=== PATIENT | female | born 1940 | race Caucasian/White ===

== ENCOUNTER 2018-12-19 20:15 | Emergency (ER) | payer MEDICARE, BC ==
[~2018-12-19] VITALS: Ht 167.6 cm; Wt 50.0 kg
[~2018-12-19 20:15] MED LIST: ESTRACE VAG0.1 MG/GM VA; FISH OI1 PO; FLUARIX QUADRIV1 IN1 IM; HYDROCHLOROT25 MG PO; NAPROSYN500 MG PO; NIACIN500 M2 PO; POT CHLORIDE10 ME5 PO; ZPAK PO
[2018-12-19] MEDS ORDERED: HYDROCO/APAP1 TA9 PO (22:08)
[2018-12-19 22:31] VITALS: BP 171/89
== END 2018-12-19 22:31 | disposition home or self-care (01) ==
LOC: ED 20:15
PROC: 2W3DX1Z Immobilization of Left Lower Arm using Splint (ICD-10-PCS; principal; 2018-12-19)
DX: S52.502A Unspecified fracture of the lower end of left radius, initial encounter for closed fracture (principal); S52.602A Unspecified fracture of lower end of left ulna, initial encounter for closed fracture; S00.81XA Abrasion of other part of head, initial encounter; W01.0XXA Fall on same level from slipping, tripping and stumbling without subsequent striking against object, initial encounter; Y93.K1 Activity, walking an animal; Y92.414 Local residential or business street as the place of occurrence of the external cause

== ENCOUNTER 2022-11-21 17:36 | Emergency (ER) | payer MEDICARE, BC ==
[~2022-11-21] VITALS: Ht 167.6 cm; Wt 58.0 kg
[~2022-11-21 17:36] MED LIST changes: +HYDROCO/APAP1 TA9 PO
[2022-11-21 22:31] VITALS: BP 180/90
== END 2022-11-21 22:43 | disposition home or self-care (01) ==
LOC: ED 17:36
DX: S39.012A Strain of muscle, fascia and tendon of lower back, initial encounter (principal); S30.0XXA Contusion of lower back and pelvis, initial encounter; I10 Essential (primary) hypertension; W01.0XXA Fall on same level from slipping, tripping and stumbling without subsequent striking against object, initial encounter

== ENCOUNTER 2023-11-07 17:14 | Inpatient (IN) | payer MEDICARE, BC ==
[~2023-11-07] VITALS: Ht 167.6 cm; Wt 54.2 kg
[2023-11-07] VITALS (9 sets, daily range): BP systolic 154–167; BP diastolic 69–87
[~2023-11-07 17:14] MED LIST changes: +AMLODIPINE BESYL5 MG PO; +ASPIRIN81 MG PO; +ATORVASTATIN CA40 MG PO
--- NOTE | 2023-11-07 17:15 | NUR ---
PT BROUGHT IN VIA EMS A STROKE ALERT, STROKE ALERT ETA 5 MINS CALLED PRIOR TO PT GETTING HERE, PT TRANSPORTED TO CT, NO DISTRESS NOTED
[2023-11-07 17:37] LABS: BASO% 0.4 % (0-3); EOS% 0.9 % (0-8); HEMATOCRIT 39.9 % (37.0-47.0); HEMOGLOBIN 12.9 g/dl (12.0-16.0); IMMATURE GRANULOCYTES 0.2 % (0.0-5.0); LYMPH% 23.5 % (15-41); MEAN CELL VOLUME 91.5 fL CALC (80.0-100.0); MEAN CORPUSCULAR HGB 29.6 pG CALC (26.0-32.0); MEAN CORPUSCULAR HGB CONC 32.3 g/dL CAL (32.0-36.0); MONO% 14.6 % (2-13); NEUT# 2.69 thou/uL (2.00-7.15); NEUT% 60.4 % (42-76); RED BLOOD COUNT 4.36 mill/uL (4.20-5.60); RED CELL DISTRI WIDTH 13.2 % (11.5-15.5)
[2023-11-07 17:50] LABS: ALKALINE PHOSPHATASE 58 u/l (38-126); ANION GAP 10 (6-22 (CALC)); BILIRUBIN, TOTAL 0.6 mg/dL (0.02-1.3); BUN 16 mg/dL (8-23); BUN/CREATININE RATIO 20 (12-20 (CALC)); CALCULATED LDLCHOLESTEROL 85 mg/dL (62-129 (CALC)); CARBON DIOXIDE 27 mmol/l (22-30); CHLORIDE 108 mmol/l (95-108); CHOLESTEROL HDL RATIO 3.1 (<4.4 (CALC)); CREATININE 0.8 mg/dL (0.5-1.0); ESTIMATED GFR 73 ML/MIN (>=90 (CALC)); HDL CHOLESTEROL 64 mg/dL (39.0-59.0); POTASSIUM 3.8 mmol/l (3.5-5.1); SGOT/AST 27 u/l (9-36); SODIUM 140 mmol/l (137-146); TOTAL CHOLESTEROL 195 mg/dl (0-199); TOTAL TRIGLYCERIDES 234 mg/dl (0-149); VLDL CHOLESTROL 47 mg/dl (0-48 (CALC))
[2023-11-07 17:51] LABS: INTERNATIONAL NORMALIZED RATIO 1.1 RATIO (0.7-1.3)
[2023-11-07 17:53] LABS: ALBUMIN 4.3 g/dL (3.2-5.0); PROTHROMBIN TIME 10.1 SECONDS (9.0-12.5); TOTAL PROTEIN 7.7 g/dL (6.3-8.2)
[2023-11-07] MEDS ORDERED: ASPIRIN 81 MG/TAB PO ONE (18:30)
[2023-11-07] MEDS ORDERED: CLOPIDOGREL BISULFATE 75 MG/TAB TAB PO ONE (18:30)
--- NOTE | 2023-11-07 19:00 | NUR ---
CARE ASSUMED WITH NO REPORT RECIEVED AT THIS TIME. NIHSS COMPLETE TO ESTABLISH PT DEFICITS BY SALT OPERATOR. PT NOTED WITH (L) ARM DRIFT, MINOR (L) FACIAL DROOP, (L) ARM LIMB ATAXIA, AND PT NOTED WITH (L) PARTIAL GAZE PALSY. PT A&O X3 AT THIS TIME, PT ABLE TO FOLLOW ALL COMMANDS. PT SPEECH NOTED TO BE CLEAR AT THIS TIME. FAMILY AT BEDSIDE. PT UPDATED ON POC, VSS, PT AWAITING ALL FURTHER RESULTS/ORDERS. PT UPDATE ON NEED FOR URINE SPECIMEN, PT STATES WILL ATTEMPT. BEDSIDE COMMODE PROVIDED, URINE SAMPLE COLLECTED, PT NOTED WITH UNSTEADY GAIT. MD AWARE OF PT STATUS.
[2023-11-07 19:57] LABS: URINE BILIRUBIN - DIPSTICK Negative (NEGATIVE); URINE BLOOD DIPSTICK Trace-intact (NEGATIVE); URINE GLUCOSE - DIPSTICK 100 mg/dL (NEGATIVE); URINE KETONE Negative (NEGATIVE); URINE LEUK ESTERASE Negative (NEGATIVE); URINE NITRITE - DIPSTICK Negative (Negative); URINE PROTEIN - DIPSTICK Negative (NEG-TRACE); URINE SPECIFIC GRAVITY 1.015; URINE UROBILINOGEN - DIPSTICK 0.2 E.U./dL (0.2)
[2023-11-07 19:58] LABS: URINE COLOR Yellow
[2023-11-07] MEDS ORDERED: ACETAMINOPHEN 325 MG/TAB PO PRN (20:00)
[2023-11-07] MEDS ORDERED: SODIUM CHLORIDE 0.9% 1,000 ML IV PRN (20:15)
[2023-11-07] MEDS ORDERED: MAGNESIUM HYDROXIDE 30 ML UDC PO PRN (20:15)
[2023-11-07] MEDS ORDERED: DEXTROSE 250 ML IV PRN (20:35)
[2023-11-07] MEDS ORDERED: ENOXAPARIN SODIUM 40 MG/0.4 ML SYR SC SCH (21:00)
[2023-11-07] MEDS ORDERED: ATORVASTATIN CALCIUM 40 MG/TAB PO SCH (21:00)
--- NOTE | 2023-11-07 21:13 | NUR ---
REPORT GIVEN TO JOHANNA ARELLANO.
--- NOTE | 2023-11-07 21:25 | NUR ---
PT TRANSPORTED TO [facility]IA [facility]. ASSISTED NURSE/JOB HAND WITH PT TRANSFER TO [facility] STRETCH[facility].
[2023-11-07] MEDS ORDERED: hydrALAZINE HCL 20 MG/ML VIAL(1 ML) IV PRN (22:20)
--- NOTE | 2023-11-07 22:30 | NUR ---
PATIENT ADMITTED FROM ER VIA STRETCHER WITH ER STAFF IN ATTENDANCE. PATIENT ASSISTED TO THE BED. PATIENT IS AWAKE AND ALERT AND ADMITTED FOR CVA. PATIENT ADMITTED FROM HOME AND LIVES ALONE. PATIENT WAS FOUND SITTING ON THE FLOOR BY HER SISTER AND EMS WAS CALLED. PATIENT WITH HISTORY OF DEMENTIA. PATIENT WITH LEFT FACIAL DROOP AND SLIGHLY SLURRED SPEECH. PATIIENT WITH SOME LEFT SIDED DRIFT AND LEANS TO THE LEFT WHEN SITTING UP. PATIENT WITH NO DIFFICULTY WITH SWALLOWING, EATING AND DRINKING WITHOUT ANY DIFFICULTY. IV SITE TO RAC INTACT AND HEALTHY WITH GOOD BLOOD RETURN WHEN FLUSHED. IVF NS HUNG AND INFUSING ORDERED. TELE MONITOR IN PLACE AND READING SB-50'S. LUNGS ARE CLEAR. ABD IS SOFT WITH ACTIVE BS. LAST BM WAS YESTERDAY SAT 11/06/23 PER PATIENT. NO DIFFICULTY WITH URINATION AT THIS TIME. NO PERIPHERAL EDEMA NOTED AND PULSES ARE PALPABLE. PATIENT PROVIDED WITH HEALTHY CHOICE TURKEY DINNER. SISTER AT BEDSIDE. ORIENTED TO ROOM AND SURROUNDINGS. INSTRUCTED ON USE OF NURSE CALL LIGHT SYSTEM AND TV REMOTE. SAFETY PRECAUTIONS REINFORCED. CALL LIGHT IN REACH. WILL CONT TO MONITOR.
[2023-11-08] VITALS (11 sets, daily range): BP systolic 120–187; BP diastolic 66–90
--- NOTE | 2023-11-08 | NUR ---
PATIENT ASSISTED OOB TO THE BSC TO VOID CLEAR YELLOW URINE. CONT TO HAVE LEFT SIDE WEAKNESS AND DRIFT. ASSISTED BACK TO BED, TELE MONITOR IN PLACE. IVF PATENT AND INFUSING VIA RAC SITE AT 100CC/HR. SISTER REMAINS AT BEDSIDE. BED ALARM IN PLACE FOR PATIENT SAFETY. CALL LIGHT IN REACH. WILL CONT TO MONITOR.
--- NOTE | 2023-11-08 01:20 | NUR ---
Patient standing scale weight 54.0 kg
--- NOTE | 2023-11-08 03:41 | NUR ---
PATIENT APPEARS SLEEPING WITH EYES CLOSED. RESPS ARE EVEN AND UNLABORED. SISTER AT BEDSIDE RESTING IN RECLINER. TELE MONITOR IN PLACE READING SR-HIGH 40'S. IVF NS PATENT AND INFUSING AT 100CC/HR. CALL LIGHT IN REACH. WILL CONT TO MONITOR.
[2023-11-08 05:02] LABS: BASO% 0.5 % (0-3); EOS% 1.5 % (0-8); HEMATOCRIT 38.6 % (37.0-47.0); HEMOGLOBIN 12.5 g/dl (12.0-16.0); IMMATURE GRANULOCYTES 0.3 % (0.0-5.0); LYMPH% 41.7 % (15-41); MEAN CELL VOLUME 93.5 fL CALC (80.0-100.0); MEAN CORPUSCULAR HGB 30.3 pG CALC (26.0-32.0); MEAN CORPUSCULAR HGB CONC 32.4 g/dL CAL (32.0-36.0); MONO% 16.6 % (2-13); NEUT# 1.57 thou/uL (2.00-7.15); NEUT% 39.4 % (42-76); RED BLOOD COUNT 4.13 mill/uL (4.20-5.60); RED CELL DISTRI WIDTH 13.4 % (11.5-15.5)
[2023-11-08 05:13] LABS: ALBUMIN 3.5 g/dL (3.2-5.0); BILIRUBIN, TOTAL 0.6 mg/dL (0.02-1.3); CREATININE 0.7 mg/dL (0.5-1.0); MAGNESIUM 2.3 mg/dL (1.6-2.3); POTASSIUM 3.9 mmol/l (3.5-5.1); TOTAL PROTEIN 6.3 g/dL (6.3-8.2)
--- NOTE | 2023-11-08 06:21 | NUR ---
PATIENT AWAKE ALERT AND ORIENTEDX3. SISTER REMAINS AT BEDSIDE. PATIENT NIH AT THIS TIME O. SPEECH IS CLEAR THIS MORNING. NO FACIAL DROOP NOTED. LEFT SIDE WEAKNESS IS IMPROVED. TELE MONITOR IN PLACE. IVF PATENT ANDINFUSING VIA RAC SITE AT 100CC/HR. PATIENT ASSISTED OOB TO THE BSC TO VOID-MOVING MUCH BETTER THIS MORNING. BED ALARM IN PLACE FOR PATIENT SAFETY6. CALL LIGHT IN REACH. WILL CONT TO MONITOR.
--- NOTE | 2023-11-08 07:13 | NUR ---
PT IS AOX3, NIH=0, LUNGS ARE CLEAR, BOWEL SOUNDS ARE ACTIVE, PEDAL PULSES ARE PALPABLE TO TOUCH, PT DENIES PAIN AT THIS TIME.
[2023-11-08] MEDS ORDERED: CLOPIDOGREL BISULFATE 75 MG/TAB TAB PO SCH (09:00)
--- NOTE | 2023-11-08 10:32 | NUR ---
NEURO AT BEDSIDE VIA [facility] DISCUSSING PLAN OF CARE WITH PT AT THIS TIME.
--- NOTE | 2023-11-08 10:40 | NUR ---
WHILE ANSWERING QUESTIONS FOR NEUROLOGIST PT ANSWERED CURRENT MONTH MAY, UNABLE TO ANSWER WHO THE PRESIDENT IS.
--- NOTE | 2023-11-08 12:00 | NUR ---
PT OFF THE FLOOR FOR MRI.
--- NOTE | 2023-11-08 12:34 | NUR ---
PT RETURNED FROM MRI, IS NOW SITTING UP IN BED EATING LUNCH.
--- NOTE | 2023-11-08 15:52 | NUR ---
pt is off the floor for echo testing.
--- NOTE | 2023-11-08 16:56 | NUR ---
PT RETURNED TO UNIT FROM ECHO.
--- NOTE | 2023-11-08 17:13 | NUR ---
PATIENT WEIGHT, AND VITAL SIGNS; WT-54.4KG T-97.9 P-93 RESP-20 B/P-114/79 O2-94 ROOM AIR
--- NOTE | 2023-11-08 17:50 | NUR ---
RECIEVED CALL FROM ER TELE MONITOR THAT PT IS SHOWING SOME IRREGULAR RHYTHMS. CALL FOR AN EKG PLACES TO RT, CHECKED PT WHO IS STIITING UP IN BED EATING DINNER, DENIES PAIN OR DISCOMFORT AT THIS TIME. PT'S BP AT 181/85, HR 62, O2 AT 97%.
--- NOTE | 2023-11-08 18:11 | NUR ---
CALL PLACED TO DR VILLEGAS TO NOTIFY PATIENTS BLOOD PRESSURE OF 187/90, HR 62, O2 OF 97%, AND ABOUT CALL FROM TELE MONITOR ABOUT PATIENTS HEART RHYTHUM.
[2023-11-08] MEDS ORDERED: amLODIPine BESYLATE 2.5 MG/TAB PO SCH (18:21)
[2023-11-08] MEDS ORDERED: ENALAPRILAT 1.25 MG/ML 1ML IV PRN (18:40)
--- NOTE | 2023-11-08 19:30 | NUR ---
PATIENT SITTING UP ION BED-AWAKE ALERT AND ORIENTEDX3 VISITING WITH FAMILY AT BEDSIDE. PATIENT WITH NO COMPLAINTS AT THIS TIME. NIH AT THIS TIME IS 0. MUCH IMPROVED FROM LAST NIGHT. SPEECH IS CLEAR, NO FACIAL DROOP, HAND GRASPS EQUAL AND STRONG. SHANA IS WNL. IVF PATENT AND INFUSING VIA RAC SITE AT 100CC/HR. LUNGS ARE CLEWAR. ABD IS SOFT WITH ACTIVE BS. LAST BM WAS TODAY. TELE MONITOR IS SR-62. BP IS ELEVATED AND NEW ORDER FOR [facility]VASC GIVEN ORDERED. BED ALARM IN PLACE FOR PATIENT SAFETY. SAFETY PRECAUTIONS REINFORCED. CALL LIGHT IN REACH. WILL CONT TO MONITOR,
[2023-11-08] MEDS ORDERED: MEMANTINE Hydrochloride 10 MG/TAB PO SCH (21:00)
--- NOTE | 2023-11-08 23:56 | NUR ---
PATIENT RESTING IN BED WITH EYES CLOSED. RESPS ARE EVEN AND UNLABORED. TELE MONITOR IN PLACE. IVF PATENT ANDINFUSING VIA [facility] SITE AT 100CC/HR. CALL LIGHT IN REACH. WILL CONT TO MONITOR.
[2023-11-09] VITALS (10 sets, daily range): BP systolic 147–168; BP diastolic 67–83
--- NOTE | 2023-11-09 00:20 | NUR ---
RESTING IN BED AT THIS TIME WITH HOB ELEVATED. EYES ARE CLOSED AND RESPS ARE EVEN AND UNLABORED. TELE MONITOR IN PLACEWITH LAST READING SR-60'S. IVF NS PATENT AND INFUSING AT 100CC/HR VIA RAC SITE. BED ALARM IN PLACE FOR PATIENT SAFETY. CALL LIGHT IN REACH. WILL CONT TO MONITOR.
--- NOTE | 2023-11-09 04:18 | NUR ---
PATIENT RESTING IN BED AT THIS TIME-APPEARS SLEEPING WITH EYES CLOSED. RESPS ARE EVEN AND UNLABORED. TELE MONITOR IN PLACE AND READING SR-62. IVF NS PATENT AND INFUSING AT 100CC/HR. BED ALARM IN PLACE FOR PATIENT SAFETY. CALL LIGHT IN REACH. WILL CONT TO MONITOR.
[2023-11-09 05:48] LABS: BASO% 0.5 % (0-3); EOS% 2.4 % (0-8); HEMATOCRIT 38.1 % (37.0-47.0); HEMOGLOBIN 12.5 g/dl (12.0-16.0); IMMATURE GRANULOCYTES 0.7 % (0.0-5.0); LYMPH% 36.8 % (15-41); MEAN CELL VOLUME 91.8 fL CALC (80.0-100.0); MEAN CORPUSCULAR HGB 30.1 pG CALC (26.0-32.0); MEAN CORPUSCULAR HGB CONC 32.8 g/dL CAL (32.0-36.0); MONO% 14.7 % (2-13); NEUT# 1.89 thou/uL (2.00-7.15); NEUT% 44.9 % (42-76); RED BLOOD COUNT 4.15 mill/uL (4.20-5.60); RED CELL DISTRI WIDTH 13.6 % (11.5-15.5)
[2023-11-09 06:28] LABS: ALBUMIN 3.2 g/dL (3.2-5.0); BILIRUBIN, TOTAL 0.4 mg/dL (0.02-1.3); CREATININE 1.1 mg/dL (0.5-1.0); MAGNESIUM 2.2 mg/dL (1.6-2.3); POTASSIUM 4.5 mmol/l (3.5-5.1)
--- NOTE | 2023-11-09 07:40 | NUR ---
SHIFT CHANGE REPORT, PT AWAKE AND ALERT RESTING IN BED, NO C/O DISCOMFORT AT THIS TIME, IVF INFUSING, TELE MONITOR IN PLACE, CALL SCHROEDER IN REACH AND BED LOCKED IN LOWEST POSITION WITH ALARM ACTIVATED. NURSE ASSISTED PT TO BSC SHE REQUESTED, TAX RECORD CLERK ASSISTED WITH TRANSFER TO RECLINER, CALL SCHROEDER PLACED IN REACH.
[2023-11-09] MEDS ORDERED: amLODIPine BESYLATE 5 MG/TAB PO SCH (09:00)
[2023-11-09] MEDS ORDERED: MEMANTINE HYDRO10 MG PO (09:23)
[2023-11-09] MEDS ORDERED: hydroCHLOROthiazide 25 MG/TAB PO SCH (10:00)
--- NOTE | 2023-11-09 10:24 | NUR ---
NEUROLOGIST JUST EVALUATED VIRTUALLY, PT HIGH-SPIRITED AND RESPONDS EAGERLY, STATES SHE WANTS TO GO HOME.
--- NOTE | 2023-11-09 13:38 | NUR ---
PT DISPLAYING SIGNS OF CONFUSION ASKING FOR HER DOG, GETTING OFF HER RECLINER TO ASSIST PT ACROSS THE [place]. SHE WAS REORIENED TO PLACE EVEN THOUGH SHE STATES SHE KNOWS SHE IS IN THE HOSPITAL, ASSISTED TO BED AND ENCOURAGED TO TAKE A NAP, BED ALARM ACTIATED.
--- NOTE | 2023-11-09 15:41 | NUR ---
SITTING UP IN RECLINER, FRIEND/FAMILY VISITING, CONTITION STABLE.
--- NOTE | 2023-11-09 20:00 | NUR ---
PATIENT SITTING UP IN BED WITH VISITORS AT BEDSIDE. PATIENT IS AWAKE ALERT AND ORIENTEDX3. PATIENT IS PLEASANT WITH NO COMPLAINTS AT THIS TIME. TELE MONITOR IN PLACE AND READING SR-60'S AT THIS TIME. IVF NS PATENT AND INFUSING AT 100CC/HR VIA RAC SITE. NIH AT TH IS TIME IS 0. NO FACIAL DROOP, NO SPEECH IMPAIRMENT AT THIS TIME. AND GRASPS ARE EQUAL AND STRONG, NO VISUAL IMPAIRMENTS. SHANA IS WNL. 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 LUNGS ARE CLEAR. ABD IS SOFT WITH LAST BM YESTERDAY-11/08/23 NO PERIPHERAL EDEMA NOTED AND PULSES PALPABLE. BED ALARM IN PLACE FOR PATIENT SAFETY. SAFETY PRECAUTIONS REINFORCED. CALL LIGHT IN REACH. WILL CONT TO MONITOR.
--- NOTE | 2023-11-09 23:53 | NUR ---
RESTING IN BED WITH HOB ELEVATED. EYES ARE CLOSED AND RESPS ARE EVEN AND UNLABORED. IVF PATENT AND INFUSING VIA RIGHT AC SITE AT 100CC/HR. TELE MONITOR IN PLACE. BED ALARM IN PLACE FOR PATIENT SAFETY. CALL LIGHT IN REACH. WILL CONT TO MONITOR.
[2023-11-10] VITALS (8 sets, daily range): BP systolic 134–171; BP diastolic 70–81
--- NOTE | 2023-11-10 00:25 | NUR ---
BED ALARM IS GOING OFF AND RESPONDED TO PATIENT ROOM. PATIENT ATTEMPTING TO GET OON TO GO TO THE BR. PATIENT ASSISTED TO THE BR TO VOID MODERATE AMT OF YELLOW URINE. ASSISTED BACK TO BED. OFFERED PO FLUIDS. TELE MONITOR IN PLACE. IVF NS PATENT AND INFUSING VIA RAC SITE. BED ALARM BACK IN PLACE FOR PATIENT SAFETY. SAFETY PRECAUTIONS REINFORCED. CALL LIGHT IN REACH. WILL CONT TO MONITOR.
--- NOTE | 2023-11-10 04:30 | NUR ---
PATIENT SITTING UP IN BED AT THIS TIME READING PAPER-ALERT AND ORIENTED AT THIS TIME. HAD SNACK AND TOLERATED WELL. TELE MONITOR IN PLACE WITH LAST READING SR-60'S. IV FLUID PATENT AND INFUSING VIA RAC SITE AT 100CC/HR. PATIENT BED ALARM HAS BEEN GOING OFF SEVERAL TIMES LAST COUPLE OF HOURS-PATIENT SOMEWHAT RESTLESS AND AWAKE. BED ALARM REMAINS IN PLACE FOR PATIENT SAFETY. CALL LIGHT IN REACH. WILL CONT TO MONITOR.
[2023-11-10 04:59] LABS: BASO% 0.4 % (0-3); EOS% 1.8 % (0-8); HEMATOCRIT 41.2 % (37.0-47.0); HEMOGLOBIN 13.6 g/dl (12.0-16.0); IMMATURE GRANULOCYTES 0.4 % (0.0-5.0); LYMPH% 32.6 % (15-41); MEAN CORPUSCULAR HGB 30.4 pG CALC (26.0-32.0); MONO% 13.8 % (2-13); NEUT# 2.5 thou/uL (2.00-7.15); RED BLOOD COUNT 4.48 mill/uL (4.20-5.60); RED CELL DISTRI WIDTH 13.6 % (11.5-15.5)
[2023-11-10 05:12] LABS: ALBUMIN 3.8 g/dL (3.2-5.0); CREATININE 0.9 mg/dL (0.5-1.0); MAGNESIUM 2.1 mg/dL (1.6-2.3); POTASSIUM 3.9 mmol/l (3.5-5.1); TOTAL PROTEIN 6.8 g/dL (6.3-8.2)
[2023-11-10 05:13] LABS: BILIRUBIN, TOTAL 0.6 mg/dL (0.02-1.3)
--- NOTE | 2023-11-10 07:08 | NUR ---
PT IS AWAKE SITTING UP IN BED AT THIS TIME, ALERT, ORIENTED TO SELF, NOT CURRENT YEAR, NOT TOWN, NIH=1, RESPIRATIONS ARE EVEN AND UNLABORED, LUNGS ARE CLEAR, BOWEL SOUNDS ARE ACTIVE, PEDLA PULSES ARE PALPABLE TO TOUCH, PT DENIES PAIN AT THIS TIME.
[2023-11-10] MEDS ORDERED: PLAVIX75 MG PO (08:44)
[2023-11-10] MEDS ORDERED: ATORVASTATIN CA40 MG PO (08:46)
--- NOTE | 2023-11-10 10:04 | NUR ---
REVIEWED DISCHARGE INSTRUCTIONS WITH PT AND PATIENT'S DAUGHTER. REMOVED IV WITH NO COMPLACATIONS, REMOVED TELE MONITOR AND PLACED IT IN RETURNS BIN AT NURSES STATION.
--- NOTE | 2023-11-10 11:25 | NUR ---
NEUROLOGIST AT BEDSIDE VIA [facility] DISCUSSING PLAN OF CARE WITH PT AT THIS TIME.
--- NOTE | 2023-11-10 12:20 | NUR ---
PT IS ALERT, SITTING UP IN CHAIR WITH LUNCH AT THIS TIME. PT NOT ORIENTED TO LOCATION, NOT ORIENTED TO TIME. PT STATES "i LIKE IT HERE, EVERYONE IS SO NICE".
--- NOTE | 2023-11-10 16:26 | NUR ---
PT IS RESTING COMFORTABLY IN BED AT TIS TIME. RESPIRATIONS ARE EVEN AND UNLABORED.
--- NOTE | 2023-11-10 19:45 | NUR ---
PT BACK TO BED AFTER BEING IN THE RESTROOM WITH FRIEND BRUSHING HER TEETH. NURSE DID HER ASSESSMENT. PT REPORTS NO PAIN AT THIS TIME. VS SIGNS RECHECKED SINCE HER BP WAS ELEVATED AT THIS TIME BP WNL. LUNG SOUNDS CLEAR ON RA. NO EDEMA ONLY SKIN ISSUE IS LESION ON TOP OF HER HEAD WHICH PROVIDER IS AWARE OF. HEART MONITOR READING SR. NO OTHER CONCERNS AT THIS TIME. CALL LIGHT WITHIN REACH. PT STATED UNDERSTANDING ON HOW TO USE IT. BED ALARM ON. PLAN OF CARE ONGOING.
--- NOTE | 2023-11-10 20:10 | NUR ---
NIGHT MEDICATION PROVIDED WITH ORAL FLUIDS. IV FLUSHED WORKING PROPERLY. PT AT THIS TIME STATED NOT NEEDING ANYTHING AND RQUESTED TV TO BE TURNED OFF AND LIGHTS TO BE TURNED OFF. BED ALARM ON. CALL LIGHT WITHIN REACH.
--- NOTE | 2023-11-11 | NUR ---
PT HELPED TO RESTROOM WHERE SHE URINATED THEN HELPED BACK TO BED. IV FLUSHED AND RECONNECTED TO IV FLUIDS. BED ALRM BACK ON. CALL LIGHT WITHIN REACH. NO PAIN REPORTED. PLAN OF CARE ONGOING.
[2023-11-11 00:09] VITALS: BP 139/81
[2023-11-11 03:41] VITALS: BP 132/64
--- NOTE | 2023-11-11 03:52 | NUR ---
PT RESTING NO DISTRESS NOTED ON EXAM. IV INFUSION ONGOING. CALL LIGHT WITHIN REACH. PLAN OF CARE ONGOING.
[2023-11-11 04:18] VITALS: BP 132/64
[2023-11-11 07:00] VITALS: BP 137/84
--- NOTE | 2023-11-11 07:58 | NUR ---
PT ALERT, ORIENTED TO SELF, HOSPITAL, NOT TOWN, NOT MONTH, NIH=1, RESPIRATIONS ARE EVEN AND UNLABORED, LUNDS ARE CLEAR, BOWEL SOUNDS ARE ACTIVE, PEDAL PULSES ARE PALPABLE TO TOUCH. DENIES PAIN AT THIS TIME.
--- NOTE | 2023-11-11 10:48 | NUR ---
PT STATES SHE FEELS NAUSIOUS. PROVIDED PT WITH AKCOHOL PAD TO SMELL AND SHE STATES "THAT HELPS"
[2023-11-11 10:52] VITALS: BP 146/58
--- NOTE | 2023-11-11 11:30 | NUR ---
PRBC STARTED. PT SITTING UP IN BED EATING LUNCH, NO COMPLAINTS AT THIS TIME.
[2023-11-11 11:32] VITALS: BP 146/58
--- NOTE | 2023-11-11 12:01 | NUR ---
PT SITTING UP IN CHAIR EATING LUNCH AT THIS TIME. PT NIH=1, DENIES PAIN AT THIS TIME.
--- NOTE | 2023-11-11 12:19 | NUR ---
PT VOMITED ABOUT 25ML. BP AT 149/54, HR 62, O2 AT 95% ON 1L O2. PT HAS NO REDNESS, NO SWELLING AT THIS TIME. WILL CONTUINE TO MONITOR PT FOR REACTION.
--- NOTE | 2023-11-11 13:44 | NUR ---
pt sitting up in chair drinking coffee waiting for her sister to pick her up.
--- NOTE | 2023-11-11 15:35 | NUR ---
reviewed discharge instructions with patient and her sister. removed iv, removed tele box and placed it in tele return bin at nurses station.
--- NOTE | 2023-11-11 15:46 | NUR ---
PT LEFT THE FLOOR VIA WHEELCHAIR STAFF TRANSPORT WITH BELONGINGS IN HAND.
--- NOTE | 2023-11-16 09:44 | NUR ---
Discharge follow up call completed 11/16/23. Pt and sister state things are going well since discharge. Pt is taking prescribed medication without issue. Pt followed up with a dermotologist last week and has a follow up appointment with her PCP today. No needs or concerns verbalized at this time.
== END 2023-11-11 15:40 | disposition home health service (06) | DRG 65 ==
LOC: ED 17:14 → ED-I 19:55 → ED 20:41 → MS2 20:42
PROVIDERS: Emergency Medicine; Nurse Practitioner Family; ADMIT Student in an Organized Health Care Education/Training Program; ATTEND Student in an Organized Health Care Education/Training Program
DX: I63.81 Other cerebral infarction due to occlusion or stenosis of small artery (principal); G81.94 Hemiplegia, unspecified affecting left nondominant side; G93.49 Other encephalopathy; R29.810 Facial weakness; R26.0 Ataxic gait; R47.81 Slurred speech; R29.704 NIHSS score 4; I10 Essential (primary) hypertension; I08.1 Rheumatic disorders of both mitral and tricuspid valves; F03.90 Unspecified dementia, unspecified severity, without behavioral disturbance, psychotic disturbance, mood disturbance, and anxiety; L98.9 Disorder of the skin and subcutaneous tissue, unspecified; E78.5 Hyperlipidemia, unspecified; Z85.828 Personal history of other malignant neoplasm of skin; Z91.81 History of falling; Z88.6 Allergy status to analgesic agent; Z60.2 Problems related to living alone
CPT/HCPCS: J1650; Q9967

== ENCOUNTER 2023-11-25 10:29 | Observation (INO) | payer MEDICARE, BC ==
[~2023-11-25] VITALS: Ht 170.2 cm; Wt 54.0 kg
[2023-11-25] VITALS (20 sets, daily range): BP systolic 116–171; BP diastolic 53–105
[~2023-11-25 10:29] MED LIST changes: +MEMANTINE HYDRO10 MG PO; +PLAVIX75 MG PO
[2023-11-25 11:01] LABS: BASO% 0.4 % (0-3); EOS% 1.3 % (0-8); HEMATOCRIT 38.7 % (37.0-47.0); HEMOGLOBIN 12.8 g/dl (12.0-16.0); IMMATURE GRANULOCYTES 0.2 % (0.0-5.0); LYMPH% 22.2 % (15-41); MEAN CELL VOLUME 90.6 fL CALC (80.0-100.0); MEAN CORPUSCULAR HGB CONC 33.1 g/dL CAL (32.0-36.0); MONO% 12.5 % (2-13); NEUT# 3.34 thou/uL (2.00-7.15); NEUT% 63.4 % (42-76); RED BLOOD COUNT 4.27 mill/uL (4.20-5.60); RED CELL DISTRI WIDTH 13.5 % (11.5-15.5)
[2023-11-25 11:04] LABS: ALBUMIN 4.3 g/dL (3.2-5.0); ALKALINE PHOSPHATASE 55 u/l (38-126); ANION GAP 9 (6-22 (CALC)); BILIRUBIN, TOTAL 0.6 mg/dL (0.02-1.3); BUN 26 mg/dL (8-23); BUN/CREATININE RATIO 32 (12-20 (CALC)); CALCULATED LDLCHOLESTEROL 86 mg/dL (62-129 (CALC)); CARBON DIOXIDE 28 mmol/l (22-30); CHLORIDE 104 mmol/l (95-108); CHOLESTEROL HDL RATIO 2.6 (<4.4 (CALC)); CREATININE 0.8 mg/dL (0.5-1.0); ESTIMATED GFR 73 ML/MIN (>=90 (CALC)); HDL CHOLESTEROL 61 mg/dL (39.0-59.0); POTASSIUM 3.6 mmol/l (3.5-5.1); SGOT/AST 25 u/l (9-36); SODIUM 138 mmol/l (137-146); TOTAL CHOLESTEROL 159 mg/dl (0-199); TOTAL PROTEIN 7.6 g/dL (6.3-8.2); TOTAL TRIGLYCERIDES 56 mg/dl (0-149); VLDL CHOLESTROL 11 mg/dl (0-48 (CALC))
[2023-11-25 11:06] LABS: INTERNATIONAL NORMALIZED RATIO 1.1 RATIO (0.7-1.3)
[2023-11-25 11:07] LABS: PROTHROMBIN TIME 10.3 SECONDS (9.0-12.5)
[2023-11-25] MEDS ORDERED: ASPIRIN 81 MG/TAB PO ONE (12:10)
[2023-11-25 13:04] LABS: URINE BILIRUBIN - DIPSTICK Negative (NEGATIVE); URINE BLOOD DIPSTICK Negative (NEGATIVE); URINE GLUCOSE - DIPSTICK Negative (NEGATIVE); URINE KETONE Negative (NEGATIVE); URINE LEUK ESTERASE Negative (NEGATIVE); URINE NITRITE - DIPSTICK Negative (Negative); URINE PROTEIN - DIPSTICK Negative (NEG-TRACE); URINE SPECIFIC GRAVITY 1.015; URINE UROBILINOGEN - DIPSTICK 0.2 E.U./dL (0.2)
[2023-11-25 13:08] LABS: URINE COLOR Yellow
[2023-11-25] MEDS ORDERED: MAGNESIUM HYDROXIDE 30 ML UDC PO PRN (14:40)
[2023-11-25] MEDS ORDERED: ACETAMINOPHEN 325 MG/TAB PO PRN (14:40)
[2023-11-25] MEDS ORDERED: MEMANTINE Hydrochloride 10 MG/TAB PO SCH (21:00)
[2023-11-25] MEDS ORDERED: ATORVASTATIN CALCIUM 40 MG/TAB PO SCH (21:00)
[2023-11-25] MEDS ORDERED: ENOXAPARIN SODIUM 40 MG/0.4 ML SYR SC SCH (21:00)
[2023-11-26 00:05] VITALS: BP 115/59
[2023-11-26 04:08] VITALS: BP 128/67
[2023-11-26 05:47] LABS: BASO% 0.5 % (0-3); EOS% 2.7 % (0-8); HEMATOCRIT 37.3 % (37.0-47.0); HEMOGLOBIN 12.7 g/dl (12.0-16.0); IMMATURE GRANULOCYTES 0.2 % (0.0-5.0); LYMPH% 29.7 % (15-41); MEAN CELL VOLUME 89.9 fL CALC (80.0-100.0); MEAN CORPUSCULAR HGB 30.6 pG CALC (26.0-32.0); MONO% 14.5 % (2-13); NEUT# 2.14 thou/uL (2.00-7.15); NEUT% 52.4 % (42-76); RED BLOOD COUNT 4.15 mill/uL (4.20-5.60); RED CELL DISTRI WIDTH 13.4 % (11.5-15.5)
[2023-11-26 06:00] LABS: ALBUMIN 3.6 g/dL (3.2-5.0); BILIRUBIN, TOTAL 0.7 mg/dL (0.02-1.3); CREATININE 0.7 mg/dL (0.5-1.0); MAGNESIUM 2.2 mg/dL (1.6-2.3); POTASSIUM 3.5 mmol/l (3.5-5.1); TOTAL PROTEIN 6.4 g/dL (6.3-8.2)
[2023-11-26 06:44] VITALS: BP 123/63
[2023-11-26] MEDS ORDERED: ASPIRIN EC 81 MG/TAB PO SCH (09:00)
[2023-11-26] MEDS ORDERED: CLOPIDOGREL BISULFATE 75 MG/TAB TAB PO SCH (09:00)
[2023-11-26] MEDS ORDERED: hydroCHLOROthiazide 25 MG/TAB PO SCH (09:00)
[2023-11-26] MEDS ORDERED: PANTOPRAZOLE SODIUM Sesquihydr 40 MG/TAB PO SCH (09:00)
[2023-11-26] MEDS ORDERED: amLODIPine BESYLATE 5 MG/TAB PO SCH (09:00)
[2023-11-26 09:03] VITALS: BP 145/78
[2023-11-26 10:21] VITALS: BP 128/61
[2023-11-26] MEDS ORDERED: ASPIRIN 81 LOW81 MG PO (12:26)
[2023-11-26 15:28] VITALS: BP 136/58
== END 2023-11-26 16:11 | disposition home health service (06) ==
LOC: ED 10:29 → ED-I 11:42 → ED 13:30 → MS2 13:31
PROVIDERS: Family Medicine; Nurse Practitioner Family; ADMIT Internal Medicine; ATTEND Internal Medicine
DX: R41.0 Disorientation, unspecified (principal); R41.82 Altered mental status, unspecified; R53.1 Weakness; I10 Essential (primary) hypertension; F03.90 Unspecified dementia, unspecified severity, without behavioral disturbance, psychotic disturbance, mood disturbance, and anxiety; E78.5 Hyperlipidemia, unspecified; Z86.73 Personal history of transient ischemic attack (TIA), and cerebral infarction without residual deficits
CPT/HCPCS: G0378; J1650; Q9967

== ENCOUNTER 2023-12-21 14:11 | Emergency (ER) | payer MEDICARE, BC ==
[~2023-12-21] VITALS: Ht 170.2 cm; Wt 60.0 kg
[~2023-12-21 14:11] MED LIST changes: +ASPIRIN 81 LOW81 MG PO
[2023-12-21 15:05] LABS: BASO% 0.5 % (0-3); EOS% 0.9 % (0-8); HEMATOCRIT 35.7 % (37.0-47.0); IMMATURE GRANULOCYTES 0.4 % (0.0-5.0); LYMPH% 16.6 % (15-41); MEAN CELL VOLUME 89.9 fL CALC (80.0-100.0); MEAN CORPUSCULAR HGB 30.2 pG CALC (26.0-32.0); MEAN CORPUSCULAR HGB CONC 33.6 g/dL CAL (32.0-36.0); MONO% 13.1 % (2-13); NEUT# 3.75 thou/uL (2.00-7.15); NEUT% 68.5 % (42-76); RED BLOOD COUNT 3.97 mill/uL (4.20-5.60); RED CELL DISTRI WIDTH 13.3 % (11.5-15.5)
[2023-12-21] MEDS ORDERED: MAGNESIUM HYDROXIDE 30 ML UDC PO ONE (15:05)
[2023-12-21] MEDS ORDERED: LACTULOSE 20 GM/30 ML UDC PO ONE (15:05)
[2023-12-21] MEDS ORDERED: Polyethylene Glycol 3350 17 GM/PKT PO ONE (15:05)
[2023-12-21 15:20] LABS: ALBUMIN 4.2 g/dL (3.2-5.0); BILIRUBIN, TOTAL 0.7 mg/dL (0.02-1.3); CREATININE 0.7 mg/dL (0.5-1.0); POTASSIUM 3.4 mmol/l (3.5-5.1); TOTAL PROTEIN 7.2 g/dL (6.3-8.2)
[2023-12-21 15:33] VITALS: BP 166/82
[2023-12-21 15:45] VITALS: BP 167/85
[2023-12-21] MEDS ORDERED: GOLYTELY PO (16:40)
[2023-12-21 17:47] VITALS: BP 167/85
== END 2023-12-21 19:13 | disposition home or self-care (01) ==
LOC: ED 14:11
PROVIDERS: Nurse Practitioner
DX: K59.00 Constipation, unspecified (principal); I10 Essential (primary) hypertension; F03.90 Unspecified dementia, unspecified severity, without behavioral disturbance, psychotic disturbance, mood disturbance, and anxiety; Z86.73 Personal history of transient ischemic attack (TIA), and cerebral infarction without residual deficits

== ENCOUNTER 2024-03-01 03:05 | Emergency (ER) | payer MEDICARE ==
[2024-03-01] VITALS (9 sets, daily range): BP systolic 122–153; BP diastolic 71–105
[~2024-03-01] VITALS: Ht 170.2 cm; Wt 48.0 kg
[~2024-03-01 03:05] MED LIST changes: +GOLYTELY PO
[2024-03-01] MEDS ORDERED: Iopamidol 370 (Isovue) 76% 100 ML SDV IV ONE ×4 (05:25→07:45)
[2024-03-01 05:26] LABS: BASO% 0.5 % (0-3); EOS% 1.9 % (0-8); HEMATOCRIT 38.9 % (37.0-47.0); HEMOGLOBIN 12.8 g/dl (12.0-16.0); IMMATURE GRANULOCYTES 0.5 % (0.0-5.0); LYMPH% 21.7 % (15-41); MEAN CORPUSCULAR HGB 30.3 pG CALC (26.0-32.0); MEAN CORPUSCULAR HGB CONC 32.9 g/dL CAL (32.0-36.0); MONO% 17.1 % (2-13); NEUT# 2.45 thou/uL (2.00-7.15); NEUT% 58.3 % (42-76); RED BLOOD COUNT 4.23 mill/uL (4.20-5.60)
[2024-03-01 05:33] LABS: BILIRUBIN, TOTAL 0.6 mg/dL (0.02-1.3); TOTAL PROTEIN 7.1 g/dL (6.3-8.2)
[2024-03-01 05:44] LABS: URINE BILIRUBIN - DIPSTICK Negative (NEGATIVE); URINE BLOOD DIPSTICK Negative (NEGATIVE); URINE GLUCOSE - DIPSTICK 100 mg/dL (NEGATIVE); URINE KETONE Negative (NEGATIVE); URINE LEUK ESTERASE Negative (NEGATIVE); URINE NITRITE - DIPSTICK Negative (Negative); URINE PH 7.5 (4.5-8.0); URINE PROTEIN - DIPSTICK Negative (NEG-TRACE); URINE SPECIFIC GRAVITY 1.015; URINE UROBILINOGEN - DIPSTICK 0.2 E.U./dL (0.2)
[2024-03-01 05:47] LABS: CALCULATED LDLCHOLESTEROL 74 mg/dL (62-129 (CALC)); CHOLESTEROL HDL RATIO 2.5 (<4.4 (CALC)); CREATININE 0.7 mg/dL (0.5-1.0); HDL CHOLESTEROL 59 mg/dL (39.0-59.0); POTASSIUM 4.3 mmol/l (3.5-5.1); TOTAL CHOLESTEROL 147 mg/dl (0-199); TOTAL TRIGLYCERIDES 73 mg/dl (0-149); VLDL CHOLESTROL 15 mg/dl (0-48 (CALC))
[2024-03-01 05:47] LABS: URINE COLOR Yellow
== END 2024-03-01 06:52 | disposition home or self-care (01) ==
LOC: ED 03:05
PROVIDERS: Emergency Medicine
DX: F03.94 Unspecified dementia, unspecified severity, with anxiety (principal); I10 Essential (primary) hypertension; E78.5 Hyperlipidemia, unspecified; Z86.73 Personal history of transient ischemic attack (TIA), and cerebral infarction without residual deficits; Z85.828 Personal history of other malignant neoplasm of skin

== ENCOUNTER 2024-06-12 17:20 | Emergency (ER) | payer MEDICARE ==
[2024-06-12] VITALS (16 sets, daily range): BP systolic 119–140; BP diastolic 60–96
[~2024-06-12] VITALS: Ht 170.2 cm; Wt 53.0 kg
[2024-06-12] MEDS ORDERED: SODIUM CHLORIDE 0.9% 1,000 ML IV ONE ×2 (17:45→19:45)
[2024-06-12 18:09] LABS: BASO% 0.4 % (0-3); EOS% 1.8 % (0-8); HEMATOCRIT 37.4 % (37.0-47.0); HEMOGLOBIN 12.6 g/dl (12.0-16.0); IMMATURE GRANULOCYTES 0.2 % (0.0-5.0); LYMPH% 21.7 % (15-41); MEAN CORPUSCULAR HGB 28.7 pG CALC (26.0-32.0); MEAN CORPUSCULAR HGB CONC 33.7 g/dL CAL (32.0-36.0); MONO% 13.3 % (2-13); NEUT# 3.21 thou/uL (2.00-7.15); NEUT% 62.6 % (42-76); RED BLOOD COUNT 4.39 mill/uL (4.20-5.60); RED CELL DISTRI WIDTH 13.9 % (11.5-15.5)
[2024-06-12 18:10] LABS: MEAN CELL VOLUME 85.2 fL CALC (80.0-100.0)
[2024-06-12 18:21] LABS: ALBUMIN 4.1 g/dL (3.2-5.0); ALKALINE PHOSPHATASE 58 u/l (38-126); BILIRUBIN, TOTAL 0.8 mg/dL (0.02-1.3); BUN 15 mg/dL (8-23); BUN/CREATININE RATIO 24 (12-20 (CALC)); CARBON DIOXIDE 26 mmol/l (22-30); CHLORIDE 97 mmol/l (95-108); CREATININE 0.6 mg/dL (0.5-1.0); ESTIMATED GFR 88 ML/MIN (>=90 (CALC)); SGOT/AST 36 u/l (9-36); TOTAL PROTEIN 7.1 g/dL (6.3-8.2)
[2024-06-12 18:22] LABS: ANION GAP 12 (6-22 (CALC)); POTASSIUM 2.5 mmol/l (3.5-5.1); SODIUM 132 mmol/l (137-146)
[2024-06-12] MEDS ORDERED: POTASSIUM CHLORIDE 20MEQ 100 ML IV ONE (18:25)
[2024-06-12] MEDS ORDERED: POTASSIUM CHLORIDE 20 MEQ/TAB PO ONE (19:05)
[2024-06-12 21:11] LABS: URINE BILIRUBIN - DIPSTICK Negative (NEGATIVE); URINE BLOOD DIPSTICK Negative (NEGATIVE); URINE COLOR Yellow; URINE GLUCOSE - DIPSTICK 100 mg/dL (NEGATIVE); URINE KETONE Negative (NEGATIVE); URINE LEUK ESTERASE Negative (NEGATIVE); URINE NITRITE - DIPSTICK Negative (Negative); URINE PROTEIN - DIPSTICK Negative (NEG-TRACE); URINE UROBILINOGEN - DIPSTICK 0.2 E.U./dL (0.2)
[2024-06-12] MEDS ORDERED: POT CHLORIDE20 ME2 PO (21:26)
== END 2024-06-12 21:45 | disposition home or self-care (01) ==
LOC: ED 17:20
PROVIDERS: Family Medicine
DX: E87.6 Hypokalemia (principal); I10 Essential (primary) hypertension; E78.5 Hyperlipidemia, unspecified; F03.90 Unspecified dementia, unspecified severity, without behavioral disturbance, psychotic disturbance, mood disturbance, and anxiety; T81.41XD Infection following a procedure, superficial incisional surgical site, subsequent encounter; B95.62 Methicillin resistant Staphylococcus aureus infection as the cause of diseases classified elsewhere; Y83.9 Surgical procedure, unspecified as the cause of abnormal reaction of the patient, or of later complication, without mention of misadventure at the time of the procedure; Z86.73 Personal history of transient ischemic attack (TIA), and cerebral infarction without residual deficits; Z79.82 Long term (current) use of aspirin; Z79.02 Long term (current) use of antithrombotics/antiplatelets; Z20.822 Contact with and (suspected) exposure to COVID-19
CPT/HCPCS: J3480